=== PATIENT | female | born 1955 | race Caucasian/White ===

== ENCOUNTER 2023-10-03 08:14 | Emergency (ER) | payer OTHER ==
--- NOTE | 2023-10-03 08:26 | ED ---
Upper Extremity HPI - General Chief Complaint: Fall Stated Complaint: Poss broken arm L Time Seen by Provider: 10/03/23 08:19 Source: patient, RN notes reviewed Mode of arrival: ambulatory Limitations: no limitations - History of Present Illness Initial Comments: This is a 68-year-old female who presents to the emergency department for a left wrist injury. States that yesterday she tripped and fell going into a camper, landing on her left arm. Denies hitting her head or any loss of consciousness. Not taking any blood thinners. States that she has since noticed swelling and a deformity to the arm and is concerned that she may have broken her wrist. MD Complaint: Injury to:: left, wrist, hand - Related Data Previous Rx's Medication Instructions Recorded HYDROcodone/APAP 7.5-325MG [[place] 1 tab PO Q6HR PRN 3 Days #12 tab 10/03/23 7.5-325] Naproxen Sodium 550 mg PO BID PRN #30 tab 10/03/23 Allergies Allergy/AdvReac Type Severity Reaction Status Date / Time aspirin Allergy Rash/Hives Verified 10/03/23 08:19 Review of Systems ROS Statement: Those systems with pertinent positive or pertinent negative responses have been documented in the HPI. ROS Other: All systems not noted in ROS Statement are negative. Past Medical History Past Medical History: No Reported History History of Any Multi-Drug Resistant Organisms: None Reported Past Surgical History: Section Past Psychological History: No Psychological Hx Reported Smoking Status: Never smoker Past Alcohol Use History: Occasional Past Drug Use History: None Reported General Exam Limitations: no limitations General appearance: alert, in no apparent distress Head exam: Present: atraumatic, normocephalic, normal inspection Respiratory exam: Present: normal lung sounds bilaterally. Absent: respiratory distress, wheezes, rales, rhonchi, stridor Cardiovascular Exam: Present: regular rate, normal rhythm, normal heart sounds. Absent: systolic murmur, diastolic murmur, rubs, gallop, clicks Extremities exam: Present: other (Diffuse swelling and ecchymosis to the left wrist with a palpable bump on the volar aspect of the left wrist. 2+ radial pulses. She is able to move all 5 digits.) Neurological exam: Present: alert, oriented X3, CN II-XII intact Psychiatric exam: Present: normal affect, normal mood Skin exam: Present: warm, dry, intact, normal color. Absent: rash Course Vital Signs 10/03/23 10/03/23 10/03/23 08:16 10:00 10:40 Temperature 97.5 F L Pulse Rate 116 H 101 H 132 H Respiratory 18 18 24 Rate Blood Pressure 139/91 147/92 O2 Sat by Pulse 96 97 100 Oximetry 10/03/23 10/03/23 10/03/23 10:59 11:18 11:21 Temperature 98.1 F Pulse Rate 89 83 82 Respiratory 20 18 18 Rate Blood Pressure 136/78 O2 Sat by Pulse 100 100 100 Oximetry Procedures - Orthopedic Fracture Reduction Fracture #1 Consent Obtained: verbal consent Side: left Fracture Reduction Location: radius, ulna Technique: finger traps Post Reduction X-rays Demonstrate: acceptable reduction Post-Reduction Neuro Exam: intact Post-Reduction Vascular Exam: intact - Orthopedic Splinting/Casting Injury #1 Side: left Upper Extremity Injury Location: wrist Upper Extremity Immobilizer: volar splint Medical Decision Making - Medical Decision Making This is a 68-year-old female who presents to the emergency department for a left wrist injury. Was pt. sent in by a medical professional or institution? @ -No Did you speak to anyone other than the patient for history? @ -No Did you review nursing and triage notes? @ -Yes, and I agree, it is accurate with regards to the patient's symptoms. Were old charts reviewed? @ -No Differential Diagnosis? @ -Differential Musculoskeletal: Muscular strain, contusion, ligament sprain, fracture, arthritis, septic ar thritis, bursitis, cellulitis, muscle spasm, nerve compression, DVT, arterial occlusion, herpes zoster, electrolyte abnormality, tumor.... This is not meant to be in all inclusive list EKG interpreted by me (3pts min.)? @ -EKG interpreted by me demonstrating the following: Sinus tachycardia. Ventricular rate 111 bpm, CA interval 165 ms, QRS duration 78 ms, QTc 388 ms. X-rays interpreted by me (1pt min.)? @ -X-ray of the left hand and wrist obtained. My interpretation identifies a distal radius and ulnar fracture. CT interpreted by me (1pt min.)? @ -Not obtained U/S interpreted by me (1pt. min.)? @ -Not obtained What testing was considered but not performed? (CT, X-rays, U/S, labs)? Why? @ -None What meds were considered but not given? Why? @ -None Did you discuss the management of the patient with other professionals? @ -No Did you reconcile home meds? @ -No Was smoking cessation discussed for >3mins.? @ -No Was critical care preformed (if so, how long)? @ -No Were there social determinants of health that impacted care today? How? (Homelessness, low income, unemployed, alcoholism, drug addiction, transportat ion, low edu. Level, literacy, decrease access to med. care, assisted, rehab)? @ -No Was there de-escalation of care discussed even if they declined? (Discuss DNR or withdrawal of care, Hospice)? @ -No What co-morbidities impacted this encounter? (DM, HTN, Smoking, COPD, CAD, Cancer, CVA, Hep., AIDS, mental health diagnosis, sleep apnea, morbid obesity)? @ -None Was patient admitted / discharged? @ -Discharged. X-ray of the left hand and wrist obtained demonstrating a partially comminuted partially impacted distal radius fracture with intra- articular extension. There is also a fracture involving the distal ulnar diametaphyseal region extending into the ulnar neck and head. Finger traps were used for reduction of the fracture which did appear improved afterwards and a volar splint was applied. She was put in an arm sling afterwards as well. She was neurovascularly intact before and afterwards. Pain was managed in the emergency department. She did at one point began having a possible panic attack and an EKG was obtained revealing no acute ST changes. Once the patient felt better she was discharged home in stable condition. Prescription for naproxen and [place] provided with dosing instructions reviewed. She was also given information for orthopedic follow-up, which we discussed she can make an appointment with here or or closer to her home town. Undiagnosed new problem with uncertain prognosis? @ -None Drug Therapy requiring intensive monitoring for toxicity (Heparin, Nitro, Insulin, Cardizem)? @ -None Were any procedures done? @ -Fracture reduction with finger traps and volar splint application. Diagnosis/symptom? @ -Fall, distal radius and ulnar fracture Acute, or Chronic, or Acute on Chronic? @ -Acute Uncomplicated (without systemic symptoms) or Complicated (systemic symptoms)? @ -Uncomplicated Side effects of treatment? @ -None Exacerbation, Progression, or Severe Exacerbation] @ -Not applicable Poses a threat to life or bodily function? @ -This will limit her use of the left upper extremity for the mean time. Return precautions reviewed in depth, the patient is instructed to return to the emergency department with any new, worsening, or concerning symptoms. Patient verbalized understanding. This case was discussed in detail with the attending ED physician, Dr. Vanessa. Presentation, findings, and treatment plan discussed in detail as well. - Radiology Data Radiology results: report reviewed, image reviewed Disposition Clinical Impression: Fall, Fracture of radius with ulna, left, closed Disposition: HOME SELF-CARE Instructions (If sedation given, give patient instructions): Wrist Fracture in Adults (ED), Splint Care (ED) Additional Instructions: Return to the emergency department with any new, worsening, or concerning symptoms. Take the naproxen twice daily as needed with Tylenol for pain relief. Take the [place] sparingly when your pain is the most severe and be aware that it may make you drowsy. Contact the orthopedic providers listed below for a follow-up appointment. Let them know that you were seen in the emergency department for for a fall and found to have a fracture in your radius and ulna. You can also look into orthopedic providers closer to where you live. Follow up with your primary care provider in 1-2 days. Prescriptions: Naproxen Sodium 550 mg PO BID PRN #30 tab PRN Reason: Pain HYDROcodone/APAP 7.5-325MG [[place] 7.5-325] 1 tab PO Q6HR PRN 3 Days #12 tab PRN Reason: Pain Is patient prescribed a controlled substance at d/c from ED?: Yes When asked, does pt state using other controlled substances?: No If prescribed controlled substance>3 days was MAPS reviewed?: Prescribed <3 Days Referrals: None,Stated [REFERRING] - 1-2 days Kevin Yee MD [STAFF PHYSICIAN] - 1-2 days Awilda Barber DO [Doctor of Osteopathic Medicine] - 1-2 days Time of Disposition: 10:27
[2023-10-03] MEDS: MORPHINE SULFATE 4 MG/ML SYRINGE IM STA ×2 (09:05→10:19)
[2023-10-03] MEDS: KETOROLAC 15 MG/ML 1 ML VIAL IM STA (09:12)
--- NOTE | 2023-10-03 09:17 | XR ---
EXAMINATION TYPE: XR wrist complete LT DATE OF EXAM: 10/03/2023 CLINICAL HISTORY: pain TECHNIQUE: Frontal, lateral and oblique images of the left wrist are obtained. COMPARISON: None. FINDINGS: Partially comminuted partially impacted distal radial fracture with intra-articular extensi on. Fracture involving the distal ulnar diametaphyseal region extending into the ulnar neck and head. Soft tissue swelling as well as deformity seen with dorsal angulation. IMPRESSION: Fractures as above.
--- NOTE | 2023-10-03 09:19 | XR ---
EXAMINATION TYPE: XR hand complete LT DATE OF EXAM: 10/03/2023 CLINICAL HISTORY: pain TECHNIQUE: Frontal, lateral and oblique images of the left hand are obtained. COMPARISON: None. FINDINGS: There is no acute fracture/dislocation evident. The joint spaces appear within normal limi ts. The overlying soft tissue appears unremarkable. C3 wrist xray 4 findings about the wrist. IMPRESSION: There is no acute fracture or dislocation of the left hand. Fractures of the left wrist have been bakari cribed. ICD 10 NO FRACTURE, INITIAL EVALUATION
[2023-10-03] MEDS: LORazepam 2 MG/ML INJ IM STA (10:31)
[2023-10-03 11:20] VITALS: RESP 18
[2023-10-03 11:23] VITALS: BP 136/78; PULSE 82; TEMP 98.1
== END 2023-10-03 11:27 | disposition home or self-care (01) ==
LOC: EC 08:14
DX: S52.572A Other intraarticular fracture of lower end of left radius, initial encounter for closed fracture (principal); S59.002A Unspecified physeal fracture of lower end of ulna, left arm, initial encounter for closed fracture; R00.0 Tachycardia, unspecified; Z88.6 Allergy status to analgesic agent; W01.0XXA Fall on same level from slipping, tripping and stumbling without subsequent striking against object, initial encounter
CPT/HCPCS: 93005; 73110; 73130; 99284; 25605; 96372 ×4; J2060; J2270; J1885